=== PATIENT | male | born 1995 | race Caucasian/White ===

== ENCOUNTER → 2024-03-07 07:06 | Outpatient (CLI) | payer OTHER, SELFPAY ==
--- NOTE | 2024-03-07 07:09 | DI.CT.S_ITS ---
PROCEDURE: CT UE LT WO CON INDICATIONS: WRIST FX TECHNIQUE: Noncontrast 1 mm axial sections acquired through the carpal bones, with coronal and sagittal reformats. COMPARISON: [facility] [place], CR, XR WRIST 3+ VIEWS LEFT, 03/03/2024, 9:24. FINDINGS: Image quality: Excellent. Bones: There is a nondisplaced fracture through mid waist of the scaphoid with up to 11 mm diastasis at fracture site and well corticated margin concerning for delayed union or nonunion. No other fracture or dislocation is seen. No suspicious bony lesion. No CT evidence of avascular necrosis. Negative ulnar variance is seen. Soft tissues: There is no abnormal soft tissue calcifications. No soft tissue mass or drainable fluid collection. No significant joint effusion or calcified intra-articular loose bodies. Extensor and flexor tendons are grossly intact. IMPRESSION: 1. Nondisplaced fracture through mid waist of scaphoid with corticated margin and up to 1 mm diastasis at fracture site concerning for nonunion. No other fracture or dislocation is noted. No suspicious bony lesion. No CT evidence of avascular necrosis. 2. No gross wrist soft tissue abnormalities. No full-thickness wrist tendon rupture. Dictated by: Maikel Thurston M.D. on 03/07/2024 at 11:24 Approved by: Maikel Thurston M.D. on 03/07/2024 at 11:26
== END ==
LOC: CT 07:08
PROVIDERS: Referring Provider Orthopaedic Surgery Foot and Ankle Surgery; Visit Provider Orthopaedic Surgery Foot and Ankle Surgery
DX: S62.025A Nondisplaced fracture of middle third of navicular [scaphoid] bone of left wrist, initial encounter for closed fracture (principal); X58.XXXA Exposure to other specified factors, initial encounter
CPT/HCPCS: 73200